=== PATIENT | female | born 1990 | race Caucasian/White ===

== ENCOUNTER 2020-03-28 20:55 | Emergency (ER) | payer OTHER ==
[~2020-03-28] VITALS: Ht 162.6 cm; Wt 69.4 kg
[2020-03-29] MEDS ORDERED: KEFLEX500 MG PO (01:26)
== END 2020-03-29 01:35 | disposition home or self-care (01) ==
LOC: ER 20:55
DX: O23.41 Unspecified infection of urinary tract in pregnancy, first trimester (principal); Z34.01 Encounter for supervision of normal first pregnancy, first trimester